=== PATIENT | female | born 1995 | race Caucasian/White ===

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

== ENCOUNTER 2019-10-30 08:20 | Emergency (ER) | payer OTHER ==
[~2019-10-30] VITALS: Ht 170.2 cm; Wt 86.0 kg
[~2019-10-30 08:20] MED LIST: CEPH-263 PO
[2019-10-30 09:21] LABS: CALCIUM 8.7 mg/dL (8.5-10.1); CREATININE 0.9 mg/dL (0.6-1.0); GFR 78.3; POTASSIUM 3.9 mmol/L (3.5-5.1)
[2019-10-30 09:25] LABS: C-REACTIVE PROTEIN 0.6 mg/L (0-3.3)
[2019-10-30 10:15] LABS: BILIRUBIN,URINE NEGATIVE (NEG); CLARITY,URINE CLEAR; COLOR,URINE YELLOW; NITRITE,URINE NEGATIVE (NEG); PROTEIN,URINE NEGATIVE (NEG-TRACE); UROBILINOGEN,URINE 0.2 mg/dL (0.2 mg/dL)
[2019-10-30 10:27] LABS: BACTERIA,URINE MOD /HPF (0-FEW); RBC,URINE TNTC /HPF (0-2); SQUAMOUS EPITHELIAL CELL,UR FEW /LPF
[2019-10-30] MEDS ORDERED: IV NORMAL SALINE 1000ML BAG 1,000 ML IV ONE (10:45)
[2019-10-30 10:53] LABS: HEMATOCRIT 39.4 % (36.0-47.0); HEMOGLOBIN 13.1 g/dL (12.0-15.5); RED BLOOD COUNT 4.46 x10^6/uL (3.50-5.40); RED CELL DISTRIBUTION WIDTH 14.7 % (11.5-14.5); WHITE BLOOD COUNT 4.7 x10^3/uL (4.0-11.0)
[2019-10-30 12:00] VITALS: BP 111/59
--- NOTE | 2019-10-30 12:22 | RAD ---
EXAMINATION: PELVIS COMPLETE, 10/30/2019 10:26 AM CLINICAL INDICATION: Bleeding, recent miscarriage TECHNIQUE: Grayscale and color Doppler sonographic images of the pelvis via transabdominal approach only. COMPARISON: None. FINDINGS: Transabdominal ultrasound only was performed. The patient declined transvaginal ultrasound. The uterus measures 8.7 x 5.3 x 4.6 cm. The endometrial stripe measures 6 mm in thickness. No gestational sac or pole seen at this time. Evaluation for intrauterine is limited by transabdominal approach. No obvious fluid or debris in the endometrial canal. Myometrium is grossly unremarkable. The right ovary measures 3.4 x 2.5 cm. The left ovary measures 2.6 x 2.6 x 2.2 cm. No free fluid. IMPRESSION: Normal transabdominal pelvic ultrasound. No evidence of intrauterine or ectopic , however evaluation is limited by transabdominal approach only. Electronically signed by: Charlotte Fraser MD (10/30/2019 12:19 PM) [id number]
--- NOTE | 2019-10-30 13:14 | PHYS DOC ---
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 Patient had a miscarriage 5 days ago. She has had a large amount of bleeding since then. 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 She states it was worse anytime she moved around. She is starting to feel some better now. She denies syncope, chest pain, shortness of breath, abdominal pain. She has not had an ultrasound during her former . Review of Systems: Review of Systems: General: Denies fever, chills, sweats, fatigue Eyes: Denies drainage, blurred vision HENT: Denies rhinorrhea, sore throat Respiratory: Denies cough, shortness of breath, wheezing Cardiac: Denies edema, palpitations, chest pain GI: Denies abdominal pain, N/V MSK: Denies back pain, neck pain Skin: Denies rash, jaundice Neuro: Denies headache.reports dizziness Psychiatric: Denies SI/HI Heart Score: Risk Factors: Risk Factors: DM, Current or recent (<one month) smoker, HTN, HLP, family history of CAD, obesity. Risk Scores: Score 0 - 3: 2.5% MACE over next 6 weeks - Discharge Home Score 4 - 6: 20.3% MACE over next 6 weeks - Admit for Clinical Observation Score 7 - 10: 72.7% MACE over next 6 weeks - Early Invasive Strategies Current Medications: Current Medications Medications (Trade) Dose Ordered Sig/Tierney Start Time Stop Time Status Last Admin Dose Admin Sodium Chloride 1,000 ml @ 0 mls/hr 1X ONCE 10/30/19 10:45 10/30/19 10:46 DC 10/30/19 10:50 999 MLS/HR Allergies: Allergies: Allergies Coded Allergies Type Severity Reaction Last Updated Verified iodine Allergy Intermediate 12/27/16 Yes latex Allergy Intermediate hives 12/27/16 Yes Physical Exam: PE: Constitutional: Well developed, well nourished, Cooperative, NAD, non-toxic appearing HEENT: Normocephalic, atraumatic, oropharynx moist, EOMI, PERRL, no drainage from eyes, normal conjunctiva Neck: Supple, normal range of motion, no stridor Cardiovascular: RRR, 2+ radial pulses bilaterally, no edema Respiratory: CTA bilaterally, no respiratory distress, no wheezing/crackles Abdomen: Soft, nontender, nondistended, no masses Skin: Warm, dry, intact Extremities: No obvious deformities Neurologic: Alert and Oriented x3, motor and sensory function grossly normal, no focal deficits Psychologic: Normal affect, normal judgment, normal mood. No SI/HI Current Patient Data: Labs: Laboratory Tests Test 10/30/19 08:58 10/30/19 09:58 10/30/19 10:02 White Blood Count 4.7 x10^3/uL (4.0-11.0) Red Blood Count 4.46 x10^6/uL (3.50-5.40) Hemoglobin 13.1 g/dL (12.0-15.5) Hematocrit 39.4 % (36.0-47.0) Mean Corpuscular Volume 88 fL (79-100) Mean Corpuscular Hemoglobin 29 pg (25-35) Mean Corpuscular Hemoglobin Concent 33 g/dL (31-37) Red Cell Distribution Width 14.7 % (11.5-14.5) H Platelet Count 192 x10^3/uL (140-400) Sodium Level 141 mmol/L (136-145) Potassium Level 3.9 mmol/L (3.5-5.1) Chloride Level 106 mmol/L (98-107) Carbon Dioxide Level 26 mmol/L (21-32) Anion Gap 9 (6-14) Blood Urea Nitrogen 15 mg/dL (7-20) Creatinine 0.9 mg/dL (0.6-1.0) Estimated GFR (Cockcroft-Gault) 78.3 Glucose Level 87 mg/dL (70-99) Calcium Level 8.7 mg/dL (8.5-10.1) C-Reactive Protein, Quantitative 0.6 mg/L (0-3.3) Urine Color Yellow Urine Clarity Clear Urine pH 7.0 (<5.0-8.0) Urine Specific [place] 1.020 (1.000-1.030) Urine Protein Negative mg/dL (NEG-TRACE) Urine Glucose (UA) Negative mg/dL (NEG) Urine Ketones (Stick) Negative mg/dL (NEG) Urine Blood Large (NEG) Urine Nitrite Negative (NEG) Urine Bilirubin Negative (NEG) Urine Urobilinogen Dipstick 0.2 mg/dL (0.2 mg/dL) Urine Leukocyte Esterase Moderate (NEG) Urine RBC Tntc /HPF (0-2) Urine WBC 5-10 /HPF (0-4) Urine Squamous Epithelial Cells Few /LPF Urine Bacteria Mod /HPF (0-FEW) POC Urine HCG, Qualitative Hcg negative (Negative) Laboratory Tests 10/30/19 08:58 Laboratory Tests 10/30/19 08:58 Vital Signs: Vital Signs Date Time Temp Pulse Resp B/P (MAP) Pulse Ox O2 Delivery O2 Flow Rate FiO2 10/30/19 12:00 46 16 100 10/30/19 08:32 98.5 139/68 (91) Room Air 98.5 EKG: EKG: [] Radiology/Procedures: Radiology/Procedures: [] Course & Med Decision Making: Course & Med Decision Making Pertinent Labs and Imaging studies reviewed. (See chart for details) Patient is 24-year-old female who presents to the emergency room complaining of dizziness. Patient has symptoms that are suggestive of orthostatic issues. She was given fluids here in the emergency room. CBC was ordered to evaluate for anemia and was normal. UA is negative. Ultrasound was done due to large amount of bleeding with recent miscarriage and was normal. It is likely that she was dehydrated. She did request information for following up with an FILLING STATION ATTENDANT to talk about tubal ligation. Gave her follow-up information. Patient's test results and vitals while in the ED were fully reviewed and discussed with the patient. Patient is stable and at this time does not need admission to the hospital. We have discussed strict return precautions and the importance of following up with their Primary Care Physician. Patient stated understanding and was given an opportunity to ask any questions. [place] Disclaimer: Dragon Disclaimer: This electronic medical record was generated, in whole or in part, using a voice recognition dictation system. Departure Departure Impression: Primary Impression: Dizziness Disposition: 01 HOME, SELF-CARE Condition: STABLE Referrals: Julisa Caldwell OBTORSTEN Justicifation of Admission Dx: Justifications for Admission: Justification of Admission Dx: No ELISEO GILLETTE MD Oct 30, 2019 13:14
--- NOTE | 2019-10-30 13:19 | EKG ---
[facility] [address] [place] [address] Test Date: 2019-10-30 Test Time: 08:44:24 Pat Name: ANTONIO GUERRERO Department: Room: Gender: F Vp Publisher Development: : 1995 Requested By: ELISEO GILLETTE Order Number: [id number] Reading MD: Measurements Intervals [place] Rate: 68 P: 47 [place]: 146 QRS: 45 QRSD: 90 T: 44 QT: 376 QTc: 404 Interpretive Statements SINUS RHYTHM ATRIAL PREMATURE COMPLEX(ES) OTHERWISE NORMAL ECG RI6.02 No previous ECG available for comparison
== END 2019-10-30 12:50 | disposition home or self-care (01) ==
LOC: ER 08:20
DX: R42 Dizziness and giddiness (principal); N93.9 Abnormal uterine and vaginal bleeding, unspecified; Z86.73 Personal history of transient ischemic attack (TIA), and cerebral infarction without residual deficits; Z90.89 Acquired absence of other organs; Z98.890 Other specified postprocedural states; Z88.1 Allergy status to other antibiotic agents; Z91.040 Latex allergy status
CPT/HCPCS: 36415; 76856; 80048; 81001; 81025; 85027; 86140; 93005; 96360; 99285; J7030

== ENCOUNTER → 2020-04-06 | Outpatient (CLI) | payer OTHER, BC, MEDICAID ==
[~2020-04-06] MED LIST changes: +NAPR-695 PO; +ORPH100T PO; +PRED20TA PO
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
== END ==
LOC: KCIC MRI 09:01
PROVIDERS: ATTEND Nurse Practitioner Adult Health
DX: M47.817 Spondylosis without myelopathy or radiculopathy, lumbosacral region (principal); M71.38 Other bursal cyst, other site
CPT/HCPCS: 72148

== ENCOUNTER 2020-04-11 17:11 | Emergency (ER) | payer BC, OTHER ==
[~2020-04-11] VITALS: Ht 170.2 cm; Wt 90.0 kg
[~2020-04-11 17:11] MED LIST changes: -NAPR-695 PO; -ORPH100T PO; -PRED20TA PO
[2020-04-11] MEDS ORDERED: KETOROLAC 60 MG/2 ML VIAL. IM ONE (18:00)
[2020-04-11] MEDS: HYDROmorphone 2 MG/ML VIAL IV/SQ PRN ×3 (18:11→21:12)
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
--- NOTE | 2020-04-11 21:22 | RAD ---
MRI of the cervical spine without contrast 04/11/2020 CLINICAL HISTORY: Neck pain. Saddle anesthesia. TECHNIQUE: Unenhanced T1-weighted, T2-weighted and inversion recovery sagittal and gradient echo and T1 axial images of the cervical spine were obtained. FINDINGS: There is mild straightening of the normal cervical lordosis. Degenerative signal changes are seen involving the C5-6 and C6-7 discs. The marrow signal of the visualized bony structures is within normal limits. The cervical spinal cord is normal morphology, position, and signal characteristics. On the axial images throughout the cervical disc spaces very mild degenerative changes are seen involving the C5-6 and C6-7 disc spaces consisting of minimal generalized disc bulges and very mild degenerative changes involving the uncovertebral and facet joints. These findings do not result in significant central spinal canal or neural foraminal stenosis. No focal disc herniation is seen. IMPRESSION: Very mild degenerative changes are seen involving the lower cervical spine as discussed above. These findings do not result in significant central spinal canal or neural foraminal stenosis. No area of abnormal signal intensity is seen involving the cervical spinal cord. Electronically signed by: Matthias Dunbar MD (04/11/2020 9:20 PM) [id number]
--- NOTE | 2020-04-11 21:28 | RAD ---
MRI of the thoracic spine without contrast 04/11/2020 CLINICAL HISTORY: Mid back pain. Saddle anesthesia. TECHNIQUE: Unenhanced T1-weighted, T2-weighted and inversion recovery sagittal and T1-weighted and T2-weighted axial images of the thoracic spine were obtained. FINDINGS: The axial images are degraded by signal loss. Minimal S-shaped curvature of the thoracolumbar spine is seen. Degenerative signal changes are seen involving the T6-7 and T7-8 discs. Degenerative signal changes are seen within the marrow surrounding these discs. The thoracic spinal cord is normal morphology, position, and signal characteristics. No significant degenerative changes are seen involving the thoracic spine. No focal disc herniation is seen. No area of significant central spinal canal or neural foraminal stenosis is noted. IMPRESSION: Negative study. Electronically signed by: Matthias Dunbar MD (04/11/2020 9:25 PM) [id number]
[2020-04-11] MEDS ORDERED: ORPHENADRINE CITRATE 60 MG/2 ML VIAL. IV ONE (22:15)
[2020-04-11] MEDS ORDERED: DEXAMETHASONE SOD PHOS 20 MG/5 ML VIAL. IVP ONE (22:15)
[2020-04-11] MEDS ORDERED: NAPR-695 PO (22:54)
[2020-04-11] MEDS ORDERED: ORPH100T PO (22:54)
[2020-04-11] MEDS ORDERED: PRED20TA PO (22:54)
[2020-04-11] MEDS ORDERED: DEXAMETHASONE 4 MG TABLET PO ONE (23:00)
[2020-04-11] MEDS ORDERED: ORPHENADRINE CITRATE 60 MG/2 ML VIAL. IM ONE (23:00)
[2020-04-11 23:20] VITALS: BP 106/60
== END 2020-04-11 23:31 | disposition home or self-care (01) ==
LOC: ER 17:11
DX: M54.5 Low back pain (principal); M54.2 Cervicalgia; R32 Unspecified urinary incontinence; M54.6 Pain in thoracic spine; R15.9 Full incontinence of feces; Z86.73 Personal history of transient ischemic attack (TIA), and cerebral infarction without residual deficits; Z90.89 Acquired absence of other organs; Z91.040 Latex allergy status; Z88.8 Allergy status to other drugs, medicaments and biological substances
CPT/HCPCS: 70450; 72141; 72146; 96372; 99285; J1170; J1885; J2360; 99284